=== PATIENT | female | born 1980 | race Caucasian/White ===

== ENCOUNTER 2023-08-01 17:27 | Emergency (ER) | payer MEDICAID ==
[~2023-08-01] VITALS: Ht 167.6 cm; Wt 68.0 kg
[2023-08-01 17:38] VITALS: BP_SYST 123; PULSE 69; RESP 18; TEMP 97.6; O2SAT 96
[2023-08-01 18:36] LABS: BASOPHILS % (AUTO) 0.8 % (0.0-2.0); EOSINOPHILS # (AUTO) 0.2 K/uL (0.0-0.4); EOSINOPHILS % (AUTO) 3.1 % (0.0-4.0); HEMATOCRIT 34.7 % (36-48); HEMOGLOBIN 11.7 g/dL (12.0-16.0); LYMPHOCYTES # (AUTO) 2.8 K/uL (1.0-5.5); LYMPHOCYTES % (AUTO) 46.2 % (20.5-51.5); MEAN CORPUSCULAR HEMOGLOBIN 28 pg (27-31); MEAN CORPUSCULAR HGB CONC 34 % (32-36); MEAN CORPUSCULAR VOLUME 84 fL (79.0-98.0); MONOCYTES # (AUTO) 0.4 K/uL (0.0-1.0); MONOCYTES % (AUTO) 6.2 % (1.7-9.3); NEUTROPHILS # (AUTO) 2.6 K/uL (1.8-7.7); NEUTROPHILS % (AUTO) 43.7 % (40.0-70.0); PLATELET COUNT (AUTO) 304 K/uL (130-430); RED BLOOD CELL COUNT(AUTO) 4.16 MIL/uL (4.2-6.2); RED CELL DISTRIBUTION WIDTH 13.3 % (9.0-15.0)
[2023-08-01 19:14] LABS: ALBUMIN 3.3 g/dL (3.4-4.8); CALCIUM 8.4 mg/dL (8.4-11.0); CREATININE 0.85 mg/dL (0.55-1.30); POTASSIUM 3.9 mmol/L (3.5-5.1); TOTAL BILIRUBIN 0.3 mg/dL (0.0-1.0)
[2023-08-01 19:20] LABS: TOTAL PROTEIN, SERUM 7.5 g/dL (6.4-8.3)
[2023-08-01] MEDS ORDERED: KETOROLAC TROMETHAMINE 30 MG VIAL IM ONE (20:30)
[2023-08-01] MEDS ORDERED: ACETAMINOPHEN 500 MG TABLET PO ONE (20:30)
[2023-08-01] MEDS ORDERED: METOCLOPRAMIDE HCL 10 MG TABLET PO ONE (20:30)
[2023-08-01] MEDS ORDERED: DEXAMETHASONE SOD PHOSPHATE 10 MG/ML VIAL PO ONE (20:30)
[2023-08-01] MEDS ORDERED: ACET-2634 PO ×2 (20:48)
[2023-08-01] MEDS ORDERED: [UNRECOGNIZED DRUG - CODE] PO (20:48)
[2023-08-01] MEDS ORDERED: [UNRECOGNIZED DRUG - CODE] PO (20:50)
[2023-08-01] MEDS ORDERED: IBUP-1969 PO (20:51)
[2023-08-01 21:05] VITALS: BP_SYST 125; PULSE 71; RESP 18; TEMP 97.7; O2SAT 97
== END 2023-08-01 21:05 | disposition home or self-care (01) ==
LOC: SED 17:27
DX: R51.9 Headache, unspecified (principal); D64.9 Anemia, unspecified; R42 Dizziness and giddiness; R06.02 Shortness of breath; Z79.899 Other long term (current) drug therapy
CPT/HCPCS: 99284; 80053; 85025; 36415; 81025; 96372; J8597; J1100; J1885